=== PATIENT | female | born 1950 | race Caucasian/White ===

== ENCOUNTER 2018-10-07 12:51 | Emergency (ER) | payer MEDICARE, OTHER ==
[2018-10-07 12:59] VITALS: BP 155/73; PULSE 87; TEMP 97.7; BMI 30.7
[2018-10-07] MEDS ORDERED: IBUPROFEN 600 MG TABLET (FP) PO ONE ×2 (13:10→13:12)
--- NOTE | 2018-10-07 13:15 | PDOC ---
History of Present Illness - General Chief Complaint: Pain Stated Complaint: LT.HAND PAIN Time Seen by Provider: 10/07/18 13:02 History Source: Patient, Old Records Exam Limitations: No Limitations - History of Present Illness Initial Comments: 10/07/18 13:11 HISTORY OF PRESENT ILLNESS: This is 67-year-old woman with past medical history of A. fib on eliquis, hypertension, eqh-[id number] diabetes, hyperlipidemia presents emergency department for evaluation of atraumatic left wrist pain upon awaking today. Patient reports when she tried to pull her pants up after using the bathroom she noted pain to the dorsum of her left hand. Patient denies any bruising or loss of strength. No recent travel or sick contacts. PAST MEDICAL HISTORY: see HPI SURGICAL HISTORY: Denies ALLERGIES: No known drug allergies REVIEW OF SYSTEMS General/Constitutional: Denies fever or chills. Denies weakness, weight change. HEENT: Denies change in vision. Denies ear pain or discharge. Denies sore throat. Cardiovascular: Denies chest pain or shortness of breath. Respiratory: Denies cough, wheezing, or hemoptysis. Gastrointestinal: Denies nausea, vomiting, diarrhea or constipation. Denies rectal bleeding. Genitourinary: Denies dysuria, frequency, or change in urination. Musculoskeletal: see HPI Skin and breasts: Denies rash or easy bruising. Neurologic: Denies headache, vertigo, loss of consciousness, or loss of sensation. Psychiatric: Denies depression or anxiety. Endocrine: Denies increased thirst. Denies abnormal weight change. Hematologic/Lymphatic: Denies anemia, easy bleeding, or history of blood clots. Allergic/Immunologic: Denies hives or skin allergy. Denies latex allergy. PHYSICAL EXAM General Appearance: Well-appearing, appropriately dressed. No apparent distress , no intoxication. Respiratory/Chest: Lungs CTAB. No shortness of breath, chest tenderness, respiratory distress, accessory muscle use. No crackles, rales, rhonchi, stridor , wheezing, dullness Cardiovascular: RRR. S1, S2. No JVD, murmur, bradycardia, tachycardia. Vascular Pulses: Dorsalis-Pedis (R): 2+, Dorsalis-Pedis (L): 2+ Musculoskeletal/Extremities: Swelling present to the dorsum of the left hand at the medial wrist. Tender to palpation. No erythema or ecchymosis present. Worsening pain with flexion of the fingers of the left hand. Full pronation and supination present. Decreased extension of left wrist. Integumentary: Appropriate color, dry, warm. No cyanosis, erythema, jaundice or rash Neurologic: recreation activities coordinator II-XII intact. Fully oriented, alert. Appropriate mood/affect. Motor strength 5/5. No appreciable EOM palsy, facial droop or sensory deficit. Past History - Past Medical History Allergies/Adverse Reactions: Allergies Allergy/AdvReac Type Severity Reaction Status Date / Time No Known Allergies Allergy Verified 10/07/18 12:52 Home Medications: Ambulatory Orders Aspirin [ASA -] 81 mg PO DAILY 12/19/11 Atorvastatin Ca [Lipitor] 20 mg PO DAILY 12/19/11 Acetaminophen [Tylenol .Regular Strength -] 650 mg PO Q4H PRN #0 tablet Furosemide [Lasix -] 20 mg PO DAILY #0 tablet 12/22/11 Metoprolol Tartrate [Lopressor -] 25 mg PO BID #0 tab 12/22/11 Zolpidem Tartrate [Ambien] 5 mg PO HS PRN #0 tablet 12/22/11 Cardiac Disorders: Yes (PALPITATIONS) COPD: No Dementia: Yes (NO MEDS) HTN: Yes Hypercholesterolemia: Yes - Suicide/Smoking/Psychosocial Hx Smoking Status: No Smoking History: Never smoked Number of Cigarettes Smoked Daily: 0 Hx Alcohol Use: No Drug/Substance Use Hx: No *Physical Exam - Vital Signs Last Vital Signs Temp Pulse Resp BP Pulse Ox 97.7 F 87 18 155/73 99 10/07/18 12:53 10/07/18 12:53 10/07/18 12:53 10/07/18 12:53 10/07/18 12:53 ED Treatment Course - RADIOLOGY Radiology Studies Ordered: Category Date Time Status WRIST W/HAND-LEFT* [RAD] Stat Radiology 10/07/18 13:10 Ordered Medical Decision Making - Medical Decision Making 10/07/18 13:14 A/P: 67-year-old woman with atraumatic left hand pain Likely tendinitis. X-ray Motrin 600 mg orally now Reassess 10/07/18 13:37 X-rays as read by me: No acute fractures or dislocations present. Patient with likely tenosynovitis of the patient an Ryan wrap and instructed to follow-up with orthopedics as needed. I discussed the physical exam findings, ancillary test results and final diagnoses with the patient. I answered all of the patient's questions. The patient was satisfied with the care received and felt comfortable with the discharge plan and treatment plan. The patient will call their primary care physician within 24 hours to arrange follow-up and will return to the Emergency Department with any new, persistent or worsening symptoms. *DC/Admit/Observation/Transfer Diagnosis at time of Disposition: Tenosynovitis of hand - Discharge Dispostion Disposition: HOME Condition at time of disposition: Stable Decision to Admit order: No - Referrals Referrals: Michael Ross MD [Staff Physician] - - Patient Instructions Printed Discharge Instructions: DI for Tenosynovitis Additional Instructions: Rest. Keep an Ryan wrap on her wrist provide some support. Take Tylenol or Motrin as needed for pain. Follow manufacture's instructions for appropriate dosage. You've been given a referral for orthopedist. Follow-up if symptoms persist. Return to emergency for any new or worsening symptoms Thank you very much for choosing us to provide your emergent health care needs. - Post Discharge Activity
[2018-10-07] MEDS ORDERED: ACETAMINOPHEN 500 MG TABLET (FP) PO ONE (13:30)
[2018-10-07] MEDS ORDERED: ACETAMINOPHEN 325 MG TABLET (FP) ONE (13:34)
== END 2018-10-07 13:47 | disposition home or self-care (01) ==
LOC: JERFT 12:51
DX: M65.9 Synovitis and tenosynovitis, unspecified (principal); I10 Essential (primary) hypertension; R00.2 Palpitations; I48.91 Unspecified atrial fibrillation; Z79.01 Long term (current) use of anticoagulants; E11.9 Type 2 diabetes mellitus without complications
CPT/HCPCS: 73110-TC-LT-FY; 73130-TC-LT-FY; 99282-25